=== PATIENT | female | born 1960 | race Caucasian/White ===

== ENCOUNTER 2024-03-05 06:04 | Observation (INO) | payer OTHER ==
[2024-03-02 10:10] LABS: BASOPHILS # (AUTO) 0.1 (0.0-0.1); BASOPHILS % 0.5 % (0.0-1.0); EOSINOPHILS # (AUTO) 0.1 (0.0-0.4); EOSINOPHILS % 1.4 % (0.0-6.0); HEMATOCRIT 44.2 % (34.2-44.1); LYMPHOCYTES # (AUTO) 1.8 (1.0-3.2); MEAN CORPUSCULAR HGB CONC 31.7 g/dL (31-35); MEAN CORPUSCULAR VOLUME 101.1 fL (81-99); MONOCYTES # (AUTO) 0.6 (0.2-0.8); MONOCYTES % 6.7 % (4.4-11.3); NEUTROPHILS # (AUTO) 6.8 (2.1-6.9); NEUTROPHILS % 71.9 % (38.7-80.0); PLATELET COUNT 256 x10e3/uL (140-360); RED BLOOD COUNT 4.37 x10e6/uL (3.6-5.1); WHITE BLOOD COUNT 9.44 x10e3/uL (4.8-10.8)
[~2024-03-05 06:04] MED LIST: AMLODIPINE BESYL5 MG PO; ATENOLOL-CHLOR1 EAC1 PO; POTASSIUM CHLO10 ME1 PO; URSODIOL300 MG PO
[2024-03-05] MEDS: CEFAZOLIN SODIUM 2 GM ONE (07:20)
[2024-03-05] MEDS: LACTATED RINGER'S 1,000 ML ONE (07:20)
[2024-03-05] MEDS: GABAPENTIN 300 MG CAP ONE (07:21)
[2024-03-05] MEDS: DEXAMETHASONE SOD PHOS 10 MG/1 ML VIAL ONE (07:22)
[2024-03-05] MEDS: CELECOXIB 200 MG CAP ONE (07:22)
[2024-03-05] MEDS ORDERED: MIDAZOLAM HCL 2 MG/2 ML VIAL ONE (07:30)
[2024-03-05] MEDS ORDERED: FENTANYL CITRATE/PF 100MCG/2 ML INJ ONE ×2 (07:30→09:04)
[2024-03-05] MEDS ORDERED: PROPOFOL IV EMULSION 10 MG/ML 20 ML VIAL ONE ×2 (07:30→08:40)
[2024-03-05] MEDS ORDERED: LIDOCAINE HCL 2% LOCAL INJ 5 ML SDV VIAL INJ ONE ×2 (07:31→08:40)
[2024-03-05] MEDS ORDERED: BENADRYL25 M1 PO (07:53)
[2024-03-05] MEDS ORDERED: ROPIVACAINE/EPI/CLONIDINE/KET 50 ML SYRINGE INJ ONE ×2 (08:00)
[2024-03-05] MEDS ORDERED: GLYCOPYRROLATE INJ 0.2 MG/ML VIAL ONE ×2 (08:44→09:35)
[2024-03-05] MEDS ORDERED: ACETAMINOPHEN 1000 MG/100 ML 100 ML IV ONE (08:44)
[2024-03-05] MEDS ORDERED: DEXAMETHASONE SOD PHOS INJ 4 MG/ML SDV ONE (08:44)
[2024-03-05] MEDS ORDERED: FAMOTIDINE 20 MG/2 ML VIAL IV ONE (08:44)
[2024-03-05] MEDS ORDERED: ONDANSETRON HCL INJ 2MG/ML 2ML 2 MG/ML VIAL ONE (08:44)
[2024-03-05] MEDS ORDERED: DOCUSATE SODIUM 100 MG CAP PO PRN (09:45)
[2024-03-05] MEDS ORDERED: ONDANSETRON HCL INJ 2MG/ML 2ML 2 MG/ML VIAL IV PRN (09:45)
[2024-03-05] MEDS ORDERED: SODIUM CHLORIDE 0.9% 1000ML 1,000 ML IV SCH (09:45)
[2024-03-05] MEDS ORDERED: HYDROCODONE/APAP 7.5MG-325MG 1 EA TAB PO PRN (09:45)
[2024-03-05] MEDS ORDERED: HYDROCODONE/APAP 5MG-325MG TAB PO PRN (09:45)
[2024-03-05] MEDS ORDERED: DIPHENHYDRAMINE HCL INJ 50 MG/ML VIAL IV PRN (09:45)
[2024-03-05] MEDS ORDERED: HYDROCODONE/APAP 5MG-325MG TAB ONE (14:28)
[2024-03-05 16:00] VITALS: BP 125/79; PULSE 78; RESP 14; O2SAT 98
[2024-03-05] MEDS ORDERED: CELECOXIB 200 MG CAP PO SCH (17:00)
[2024-03-05] MEDS ORDERED: ASPIRIN 325 MG TAB PO SCH (20:00)
[2024-03-06] MEDS ORDERED: ACETAMINOPHEN 1000 MG/100 ML IV PRN (09:45)
== END 2024-03-05 16:20 | disposition home health service (06) ==
LOC: OR 06:04 → PACU V 15:09
PROVIDERS: ADMIT Specialist; ATTEND Specialist
DX: M17.11 Unilateral primary osteoarthritis, right knee (principal); I10 Essential (primary) hypertension; E11.9 Type 2 diabetes mellitus without complications; K21.9 Gastro-esophageal reflux disease without esophagitis; K74.5 Biliary cirrhosis, unspecified; D89.89 Other specified disorders involving the immune mechanism, not elsewhere classified; Z01.812 Encounter for preprocedural laboratory examination; Z79.899 Other long term (current) drug therapy
CPT/HCPCS: 27447; 36415; 73560; 85025; 86850; 86900; 97110; 97116; 97162; 97530 ×2; C1713 ×2; C1776 ×2; G0378; J0131; J0690 ×2; J1100 ×2; J2003; J2250; J2405; J2704; J3010; J7030; J7121

== ENCOUNTER → 2025-01-07 | Day surgery (SDC) | payer BC ==
[2025-01-03 09:33] LABS: BASOPHILS % 0.6 % (0.0-1.0); EOSINOPHILS % 3.0 % (0.0-6.0); LYMPHOCYTES % 13.9 % (18.0-39.1); MONOCYTES % 5.3 % (4.4-11.3); NEUTROPHILS % 76.9 % (38.7-80.0); RED CELL DISTRIBUTION WIDTH 13.3 % (11.7-14.4)
[~2025-01-07] MED LIST changes: +ACETAMINOPHEN 1000 MG/100 ML 100 ML IV ONE; +ACETAMINOPHEN 1000 MG/100 ML IV PRN; +ASPIRIN 325 MG TAB PO SCH; +BENADRYL25 M1 PO; +CELECOXIB 100 MG CAP PO SCH; +DEXAMETHASONE SOD PHOS INJ 4 MG/ML SDV ONE; +DIPHENHYDRAMINE HCL INJ 50 MG/ML VIAL IV PRN; +DOCUSATE SODIUM 100 MG CAP PO PRN; +FENTANYL CITRATE/PF 100MCG/2 ML INJ ONE; +HYDROCODONE/APAP 5MG-325MG TAB PO PRN; +HYGROTON25 MG PO; +LABETALOL HCL100 MG PO; +LIDOCAINE HCL 2% LOCAL INJ 5 ML SDV VIAL INJ ONE; +MIDAZOLAM HCL 2 MG/2 ML VIAL ONE; +ONDANSETRON HCL INJ 2MG/ML 2ML 2 MG/ML VIAL IV PRN; +ONDANSETRON HCL INJ 2MG/ML 2ML 2 MG/ML VIAL ONE; +POTASSIUM CHLO20 ME2 PO; +PROPOFOL IV EMULSION 10 MG/ML 20 ML VIAL ONE; +ROCURONIUM BROMIDE 1 ML IV ONE; +ROPIVACAINE 246.25 MG, EPINEPHRINE HCL 1:1000 1ML 0.5 MG, CLONIDINE HCL 0.08 MG, KETORO... INJ ONE; +ROPIVACAINE/EPI/CLONIDINE/KET 50 ML SYRINGE INJ ONE; +SODIUM CHLORIDE 0.9% 1000ML 1,000 ML IV SCH; +SUGAMMADEX SODIUM 200 MG/2 ML VIAL IV ONE
[2025-01-07 06:08] LABS: BASOPHILS % 0.3 % (0.0-1.0); EOSINOPHILS % 3.9 % (0.0-6.0); LYMPHOCYTES % 17.6 % (18.0-39.1); MONOCYTES % 7.0 % (4.4-11.3); NEUTROPHILS % 70.7 % (38.7-80.0); RED CELL DISTRIBUTION WIDTH 13.3 % (11.7-14.4)
[2025-01-07] MEDS: GABAPENTIN 300 MG CAP ONE (07:08)
[2025-01-07] MEDS: LACTATED RINGER'S 1,000 ML ONE (07:08)
[2025-01-07] MEDS: CELECOXIB 200 MG CAP ONE (07:08)
[2025-01-07] MEDS: DEXAMETHASONE SOD PHOS 10 MG/1 ML VIAL ONE (07:08)
[2025-01-07] MEDS: CEFAZOLIN SODIUM 2 GM ONE (07:09)
[2025-01-07] MEDS: HYDROCODONE/APAP 7.5MG-325MG 1 EA TAB PO PRN (10:10)
[2025-01-07 13:05] VITALS: BP 147/82; PULSE 78; RESP 18; O2SAT 97
== END | disposition home health service (06) ==
LOC: OR 05:32
PROVIDERS: ATTEND Specialist
DX: M17.12 Unilateral primary osteoarthritis, left knee (principal); M25.762 Osteophyte, left knee; Z96.651 Presence of right artificial knee joint; M06.9 Rheumatoid arthritis, unspecified; E11.9 Type 2 diabetes mellitus without complications; I10 Essential (primary) hypertension; K21.9 Gastro-esophageal reflux disease without esophagitis; Z88.2 Allergy status to sulfonamides; Z91.041 Radiographic dye allergy status; Z01.812 Encounter for preprocedural laboratory examination; Z01.818 Encounter for other preprocedural examination; Z79.899 Other long term (current) drug therapy; Z91.81 History of falling
CPT/HCPCS: 27447; 36415 ×2; 71046; 73560; 82948; 85025 ×2; 86850; 86900; 97116 ×2; 97161; 97530; C1713 ×2; C1776 ×2; J0131; J0169; J1100 ×2; J1885; J2003; J2250; J2405; J2704; J2795; J3010; J7121